=== PATIENT | female | born 1955 | race Caucasian/White ===

== ENCOUNTER 2024-10-18 06:45 | Day surgery (SDC) | payer BC, OTHER ==
[~2024-10-18 06:45] MED LIST: Lactated Ringers 1,000 ML IV PRN
[2024-10-18] MEDS ORDERED: fentaNYL 100 MCG/2 ML SDV IV ONE (06:46)
[2024-10-18] MEDS ORDERED: Midazolam 1 MG/ML 2 ML SDV IV ONE (06:46)
[2024-10-18] MEDS: Sodium Chloride 0.9% 10 ML Syringe FLUSH PRN (07:40)
[2024-10-18] MEDS: acetaZOLAMIDE 500 MG Cap.ER PO ONE (08:38)
[2024-10-18 10:40] VITALS: BP 134/81; PULSE 67
== END 2024-10-18 08:50 | disposition home or self-care (01) ==
LOC: FB.SDS 06:45
PROVIDERS: ATTEND Ophthalmology
DX: H25.812 Combined forms of age-related cataract, left eye (principal); H43.813 Vitreous degeneration, bilateral; H35.033 Hypertensive retinopathy, bilateral; D31.32 Benign neoplasm of left choroid; H52.13 Myopia, bilateral; I10 Essential (primary) hypertension; J45.20 Mild intermittent asthma, uncomplicated; E78.5 Hyperlipidemia, unspecified; K21.9 Gastro-esophageal reflux disease without esophagitis; Z87.891 Personal history of nicotine dependence; Z79.899 Other long term (current) drug therapy
CPT/HCPCS: 66984; A9270; J2250; J3010; V2632; 00142

== ENCOUNTER 2024-11-22 08:05 | Day surgery (SDC) | payer MEDICARE, OTHER ==
[2024-11-22] MEDS ORDERED: fentaNYL 100 MCG/2 ML SDV IV ONE (08:06)
[2024-11-22] MEDS ORDERED: Midazolam 1 MG/ML 2 ML SDV IV ONE (08:06)
[2024-11-22] MEDS ORDERED: Lactated Ringers 1,000 ML IV PRN (08:30)
[2024-11-22] MEDS: Sodium Chloride 0.9% 10 ML Syringe FLUSH PRN (09:11)
[2024-11-22] MEDS: acetaZOLAMIDE 500 MG Cap.ER PO ONE (10:57)
[2024-11-22 12:11] VITALS: BP 133/91; PULSE 69
== END 2024-11-22 11:12 | disposition home or self-care (01) ==
LOC: FB.SDS 08:05
PROVIDERS: ATTEND Ophthalmology
DX: H26.9 Unspecified cataract (principal)
CPT/HCPCS: 00142; A9270-GY; J2250; J3010; V2632